=== PATIENT | male | born 1970 | race Caucasian/White ===

== ENCOUNTER 2017-06-10 18:31 | Emergency (ER) | payer SELFPAY ==
[~2017-06-10] VITALS: Ht 175.3 cm; Wt 77.1 kg
[2017-06-10 18:34] VITALS: BP 119/78
--- NOTE | 2017-06-10 18:50 | PHYS DOC ---
Adult General Chief Complaint Chief Complaint: BACK PAIN OR INJURY HPI HPI Patient is a 47 year old male with previous history of back pain who presents today with mild back pain that began this evening after lifting rocks. Patient denies falling. He states his pain radiates to bilateral upper and lower extremities as well as to the lumbar spine. He states he has some intermittent numbness and tingling to bilateral lower extremities which he states is not new. Patient denies any loss of bowel bladder function. Patient states his pain is worse on movement. Review of Systems Review of Systems Constitutional: Denies fever or chills [] GI: Denies abdominal pain, nausea, vomiting, bloody stools or diarrhea [] : Denies dysuria or hematuria [] Musculoskeletal: Mid back pain and low back pain. Integument: Denies rash or skin lesions [] Neurologic: Denies headache, focal weakness or sensory changes [] All other systems were reviewed and found to be within normal limits, except as documented in this note. Current Medications Current Medications Current Medications Medications (Trade) Dose Ordered Sig/Fatemeh Start Time Stop Time Status Last Admin Dose Admin Ibuprofen (Motrin) 800 mg 1X ONCE 06/10/17 19:00 06/10/17 19:01 Allergies Allergies Allergies Coded Allergies Type Severity Reaction Last Updated Verified No Known Drug Allergies 06/10/17 No Physical Exam Physical Exam Constitutional: Well developed, well nourished, no acute distress, non-toxic appearance. [] Abdomen: Bowel sounds normal, soft, no tenderness, no masses, no pulsatile masses. [] Skin: Warm, dry, no erythema, no rash. [] Back: Diffuse paraspinal muscle tenderness to thoracic and lumbar spine, no midline thoracic or lumbar spine tenderness, no CVA tenderness. [] Extremities: No tenderness, no cyanosis, no clubbing, ROM intact, no edema. [] Neurologic: Alert and oriented X 3, normal motor function, normal sensory function, no focal deficits noted. [] Psychologic: Affect normal, judgement normal, mood normal. [] Current Patient Data Vital Signs Vital Signs Date Time Temp Pulse Resp B/P (MAP) Pulse Ox O2 Delivery O2 Flow Rate FiO2 06/10/17 18:34 98.0 79 24 99 Room Air 98.0 EKG EKG [] Radiology/Procedures Radiology/Procedures [] Course & Med Decision Making Course & Med Decision Making Pertinent Labs and Imaging studies reviewed. (See chart for details) Patient has pain consistent with thoracic and lumbar spine strain. Discharged with naproxen, Medrol Dosepak and cyclobenzaprine. Ice or heat recommended to the affected areas. Instructed not to lift anything heavy for the next 3 days. Provided him a doctor's list for follow-up. Dragon Disclaimer Dragon Disclaimer This electronic medical record was generated, in whole or in part, using a voice recognition dictation system. Departure Departure Impression: Primary Impression: Acute thoracic myofascial strain Additional Impression: Acute lumbar myofascial strain Disposition: HOME, SELF-CARE Condition: STABLE Patient Instructions: Lumbosacral Strain, Thoracic Strain, [id number] Additional Instructions: You were seen with thoracic and lumbar spine strain. You can apply heat or ice to the affected areas. Do not lift anything greater than a gallon of milk for 3 days. Avoid doing strenuous activities for 3 days. Take the prescribed medicines as ordered. Do not drive or operate machinery on the cyclobenzaprine. Follow-up with a doctor from the list provided in 1-2 weeks. Scripts Methylprednisolone (MEDROL) 4 Mg Tab.ds.pk 1 PKG PO UD, #1 PKG Prov: ROBIN PYLE APRN 06/10/17 Naproxen (NAPROXEN) 500 Mg Tablet 1 TAB PO BID, #30 TAB 0 Refills Prov: ROBIN PYLE APRN 06/10/17 Cyclobenzaprine Hcl (CYCLOBENZAPRINE HCL) 10 Mg Tablet 1 TAB PO TID, #30 TAB Prov: ROBIN PYLE APRN 06/10/17 Problem Qualifiers Primary Impression: Acute thoracic myofascial strain Encounter type: initial encounter Qualified Codes: S29.019A - Strain of muscle and tendon of unspecified wall of thorax, initial encounter Additional Impression: Acute lumbar myofascial strain Encounter type: initial encounter Qualified Codes: S39.012A - Strain of muscle, fascia and tendon of lower back, initial encounter ROBIN PYLE APRN Jun 10, 2017 18:49
[2017-06-10] MEDS ORDERED: NAPR500T4 PO (18:56)
[2017-06-10] MEDS ORDERED: METH4TAB2 PO (18:56)
[2017-06-10] MEDS ORDERED: CYCL10TA2 PO (18:56)
[2017-06-10] MEDS ORDERED: IBUPROFEN 800 MG TABLET. PO ONE (19:00)
== END 2017-06-10 19:10 | disposition home or self-care (01) ==
LOC: ER 18:31
DX: S39.012A Strain of muscle, fascia and tendon of lower back, initial encounter (principal); S29.012A Strain of muscle and tendon of back wall of thorax, initial encounter; X58.XXXA Exposure to other specified factors, initial encounter; Y93.89 Activity, other specified; Y92.89 Other specified places as the place of occurrence of the external cause; Y99.8 Other external cause status
CPT/HCPCS: 99283